=== PATIENT | female | born 1945 | race Caucasian/White ===

== ENCOUNTER 2016-06-17 14:41 | Inpatient (IN) | payer MEDICARE ==
[~2016-06-17] VITALS: Ht 160 cm; Wt 62.0 kg
[2016-06-20] MEDS ORDERED: LORA-373 PO (15:38)
[2016-06-20] MEDS ORDERED: VALT500T PO (15:38)
[2016-06-20] MEDS ORDERED: ESTR1DIS2 T-DERMAL (15:38)
[2016-06-20] MEDS ORDERED: VITA2000 PO (15:38)
[2016-06-20] MEDS ORDERED: DILA100C PO (15:38)
[2016-06-20] MEDS ORDERED: PREV15CA15 PO (15:38)
[2016-06-20] MEDS ORDERED: CALC600T25 PO (15:38)
[2016-06-20] MEDS ORDERED: SIMV10TA PO (15:38)
[2016-07-14] MEDS ORDERED: HYDR-3580 PO (12:47)
[2016-07-26] MEDS ORDERED: VANCOMYCIN 1000 MG/NS 250 ML (for <70 kg) IV SCH ×2 (06:45)
[2016-07-26] MEDS ORDERED: ceFAZolin 2 GM PREMIX 50 ML IV SCH (06:45)
[2016-07-26] MEDS ORDERED: SODIUM CHLORID 0.9% 500 ML IV PRN (06:45)
[2016-07-26] MEDS ORDERED: LACTATED RINGER'S 1000 ML IV PRN (06:45)
[2016-07-26] MEDS ORDERED: CHLORHEXIDINE GLUCONATE 2 % 1 PACK (2 CLOTHS) TOPICAL PRN (06:45)
[2016-07-26] MEDS ORDERED: POVIDONE IODINE 5% (ANTISEPSIS KIT) 4 APPLICATIONS EACH NARE PRN (06:45)
[2016-07-26] MEDS ORDERED: METOPROLOL TARTRATE 25 MG TAB PO PRN (06:45)
[2016-07-26] MEDS: POVIDONE IODINE 7.5% SCRUB 118 ML BOTTLE TOPICAL SCH ×2 (06:45→23:28)
[2016-07-26] MEDS ORDERED: INSULIN HUMAN REGULAR 1,000 UNITS/10 ML VIAL SQ PRN (06:45)
[2016-07-26] MEDS ORDERED: HYDR-3516 PO (07:26)
[2016-07-26 07:28] VITALS: BP 160/82; PULSE 88; RESP 18; TEMP 97.9; O2SAT 98
[2016-07-26] MEDS ORDERED: MIDAZOLAM HCL 2 MG/2 ML VIAL ONE (08:15)
[2016-07-26] MEDS ORDERED: FAMOTIDINE 20 MG/2 ML VIAL ONE (08:15)
[2016-07-26] MEDS ORDERED: ACETAMINOPHEN 1000 MG/100 ML VIAL IV ONE (08:15)
[2016-07-26] MEDS ORDERED: DEXAMETHASONE SOD PHOS 4 MG/ML VIAL ONE (08:15)
[2016-07-26] MEDS ORDERED: GELFOAM SIZE 100 ONE ×2 (08:30→08:43)
[2016-07-26] MEDS ORDERED: SODIUM CHLORIDE 0.9% 20 ML VIAL ONE (08:30)
[2016-07-26] MEDS ORDERED: ceFAZolin INJ 1,000 MG VIAL ONE ×2 (08:30→08:52)
[2016-07-26] MEDS ORDERED: GENTAMICIN SULFATE 80 MG/2 ML VIAL ONE ×2 (08:30→08:43)
--- NOTE | 2016-07-26 10:58 | PD.OP ---
cc: Marek Kiran MD Operative Report Date of Surgery: Jul 26, 2016 Preoperative Diagnosis: Osteophyte disc complex cervical spine, C3 4, C4 5, C5 6. Cervical radiculopathy. Status post anterior cervical fusion C3 4, C4 5, C5 6 Postoperative Diagnosis: Same Procedure: Posterior cervical fusion C3 4, C4 5, C5 6. Posterior spinal segmental instrumentation with facet screw at C35 C45 and C5 6 , bilateral. Left posterior iliac crest bone graft. Placement of facet cages C 34, C4 5, C5 6, bilateral Anesthesia: Gen. Surgeon: Marek Kiran Machine Maintenance Technician(s): LEVY Peterson Operation and Findings: EBL: 50 cc INDICATIONS: This patient is a 70-year-old female whose had a year of conservative care for neck and shoulder and arm pain related to osteophyte disc complex and facet disease at C3 4 C4 5 and C5 6. She's had an anterior cervical fusion across this level and now presents for staged posterior cervical fusion. NOTE: Bonita Peterson PA-C was present for the entire surgical procedure as my miller first. In my medical opinion her skill and care was necessary for proper management of this patient PROCEDURE: The patient was brought the operating room and anesthetized in the supine position. The patient was positioned prone on a Fletcher table. The arms were placed out along the side and taping was utilized to ensure adequate visualization. AP and lateral radiographic images were used identifying the proper level and allowing excellent exposure for purpose of the cervical fusion. A timeout was done and antibiotics were given within a routine time window. A small incision was made over the left iliac crest bone graft. A series of cores of bone graft were harvested with a special percutaneous device. The bone graft was taken to the back table to be mixed with stem cell bone graft for the later part of the case Using AP and lateral radiographs, skin markings were made. On the right side and 18-gauge spinal needle was placed down to the proper level. The left side a separate incision was made and we used the [employer]X system. Exposure was afforded down to the proper level. Under visualization, a chisel was placed down to the C 56 level. This was confirmed under radiographs to be in proper position. Exposure was satisfactory. This is placed down into the facet joint at that level. A decorticating device was utilized decorticating the bone of the facet above and below. A retractor was placed down over the access chisel allowing exposure to the joint and exposure to the articular cartilage. A drilling system was utilized removing cartilage and bone this region followed by a rasp. On the back table demineralized bone matrix was mixed with Nucel stem cells and a autogenous bone graft. A combination of both these were then paced placed into proper cages. The cages were impacted into the proper position and checked again under AP and lateral fluoroscopic images. A transfixation screw was placed into the cage having excellent fixation into the facet joint of the level above. The back side of the cage was filled with additional bone graft which was tamped into position. The retractor was removed. On the right side a separate incision was made. Using the likewise sequence of access to the same level, an incision was made allowing visualization for placement of an access chisel which was placed into the joint followed by decortication with excellent visualization. A final retractor was positioned holding this while we were able to drill and use the rasp. The joint was prepared and we created a space for the cage. The cage was filled with bone graft and impacted in proper position. A transfixation screw was fixated at that time and alignment was satisfactory. Additional bone graft placed along the posterior aspect of the cage and the facet joint and was tamped into position.. At the C4 5 level, this was repeated in the likewise fashion. A decorticating device was utilized decorticating the bone of the facet above and below. A retractor was placed down over the access chisel allowing exposure to the joint and exposure to the articular cartilage. A drilling system was utilized removing cartilage and bone this region followed by a rasp. On the back table demineralized bone matrix was mixed with Nucel stem cells and a autogenous bone graft. A combination of both these were then paced placed into proper cages. The cages were impacted into the proper position and checked again under AP and lateral fluoroscopic images. A transfixation screw was placed into the cage having excellent fixation into the facet joint of the level above. The back side of the cage was filled with additional bone graft which was tamped into position. The retractor was removed. On the right side this was repeated in the likewise fashion. Using the likewise sequence of access to the same level. An access chisel was placed into the joint followed by decortication with excellent visualization. A final retractor was positioned holding this while we were able to drill and use the rasp. The joint was prepared and we created a space for the cage. The cage was filled with bone graft and impacted in proper position. A transfixation screw was fixated at that time and alignment was satisfactory. Additional bone graft placed along the posterior aspect of the cage and the facet joint and was tamped into position. At the [] level, this was repeated in the likewise fashion. A decorticating device was utilized decorticating the bone of the facet above and below. A retractor was placed down over the access chisel allowing exposure to the joint and exposure to the articular cartilage. A drilling system was utilized removing cartilage and bone this region followed by a rasp. On the back table demineralized bone matrix was mixed with Nucel stem cells and a autogenous bone graft. A combination of both these were then paced placed into proper cages. The cages were impacted into the proper position and checked again under AP and lateral fluoroscopic images. A transfixation screw was placed into the cage having excellent fixation into the facet joint of the level above. The back side of the cage was filled with additional bone graft which was tamped into position. The retractor was removed. On the right side this was repeated in the likewise fashion. Using the likewise sequence of access to the same level. An access chisel was placed into the joint followed by decortication with excellent visualization. A final retractor was positioned holding this while we were able to drill and use the rasp. The joint was prepared and we created a space for the cage. The cage was filled with bone graft and impacted in proper position. A transfixation screw was fixated at that time and alignment was satisfactory. Additional bone graft placed along the posterior aspect of the cage and the facet joint and was tamped into position. Intraoperative x-rays in AP and lateral plane showed excellent positioning and stabilization . The wound was irrigated copiously. Hemostasis was controlled. The fascia was closed with interrupted Vicryl suture skin and subcutaneous tissue with 3-0 Vicryl suture followed by Dermabond. The sponge count needle counts and sponge counts were all correct. The patient tolerated the procedure well as taken to the recovery room in satisfactory condition. FINDINGS: There was evidence of severe facet disease at each level. Cage position and stabilization devices were very satisfactory. No complication was appreciated. Marek Kiran MD Jul 26, 2016 10:58
[2016-07-26] MEDS ORDERED: ONDANSETRON HCL 4 MG/2 ML VIAL IV PRN (11:00)
[2016-07-26] MEDS ORDERED: MORPHINE SULFATE 4 MG/ML INJ IV PUSH PRN (11:00)
[2016-07-26] MEDS ORDERED: ACETAMINOPHEN/HYDROcodone 325 MG/7.5 MG TAB PO PRN (11:00)
[2016-07-26] MEDS ORDERED: BISACODYL 10 MG SUPP RECTAL PRN (11:00)
[2016-07-26] MEDS ORDERED: Post-op Orders (for Pharmacy) MISC XX ONE (11:00)
[2016-07-26] MEDS ORDERED: LORazepam 0.5 MG TAB PO PRN (11:00)
[2016-07-26] MEDS ORDERED: HYDR-3580 PO (11:02)
[2016-07-26] MEDS ORDERED: DO NOT ADM ANY ANTICOAGULANT DRUGS PRN (11:06)
[2016-07-26] MEDS ORDERED: PROPOFOL 200 MG/20 ML AMP IV ONE (11:16)
[2016-07-26] MEDS ORDERED: PHENYLEPH/NS 1000 MCG/10 ML SYR IV ONE (11:16)
[2016-07-26] MEDS ORDERED: ONDANSETRON HCL 4 MG/2 ML VIAL IV PUSH ONE (11:16)
[2016-07-26] MEDS ORDERED: ePHEDrine/NS 25 MG/5 ML SYR IV ONE (11:16)
[2016-07-26] MEDS ORDERED: fentaNYL CITRATE 250 MCG/5 ML AMP ONE (11:17)
[2016-07-26] MEDS ORDERED: *morphine SULFATE 8 MG/ML PERIprocedure ONLY ONE ×3 (11:18→11:41)
[2016-07-26] MEDS: LACTATED RINGER'S 1000 ML INJ 1,000 ML IV SCH ×2 (11:31→20:04)
[2016-07-26] MEDS ORDERED: *HYDROmorphone PF 1 MG VIAL PERIprocedural Use ONLY ONE (11:56)
[2016-07-26] MEDS ORDERED: MORPHINE SULFATE 4 MG/ML INJ IV ONE (12:00)
[2016-07-26] MEDS ORDERED: NEOSTIGMINE 3 MG/3 ML SYR IV ONE (12:00)
[2016-07-26] MEDS ORDERED: PHENYTOIN SODIUM 100 MG CAP PO SCH (13:00)
[2016-07-26] MEDS ORDERED: SODIUM CHLORIDE 0.9% FLUSH 10 ML FLUSH IV FLUSH PRN (13:00)
[2016-07-26] MEDS ORDERED: *ONDANSETRON 4 MG VIAL PERIprocedural Use ONLY ONE (14:37)
[2016-07-26] MEDS ORDERED: PROMETHAZINE HCL 25 MG SUPP RECTAL ONE (15:06)
[2016-07-26 16:00] VITALS: BP 145/67; PULSE 106; RESP 18; TEMP 96.4; O2SAT 97
[2016-07-26] MEDS: ACETAMINOPHEN/HYDROcodone 325 MG/7.5 MG TAB PO PRN ×2 (17:31→21:34)
[2016-07-26 17:55] VITALS: O2SAT 97
--- NOTE | 2016-07-26 19:35 | RADRPT ---
EXAM DATE/TIME: 07/26/2016 10:34 [facility] COMPARISON: [facility] ([facility]), July 14, 2016, 13:34. INDICATIONS : Posterior fusion C3 to C6. MEDICAL HISTORY : None. SURGICAL HISTORY : Fusion, cervical. ENCOUNTER: Initial ACUITY: 1 day PAIN SCORE: Non-responsive. LOCATION: Cervical spine. FINDINGS: Two projection examination was performed. There is plate and screw fixation across C3-4-5-6 with fac et hardware also present. Patient intubated. Normal alignment. CONCLUSION: 1. Cervical spine fusion as above. Stefan Hood MD on July 26, 2016 at 19:32 Board Certified Radiologist. This report was verified electronically.
[2016-07-26] MEDS: SODIUM CHLORIDE 0.9% FLUSH 10 ML FLUSH IV FLUSH SCH (20:04)
[2016-07-26 20:30] VITALS: BP 137/62; PULSE 96; RESP 16; TEMP 98.6; O2SAT 99
[2016-07-27 00:30] VITALS: BP 146/68; PULSE 95; RESP 17; TEMP 96; O2SAT 100
[2016-07-27] MEDS: ACETAMINOPHEN/HYDROcodone 325 MG/7.5 MG TAB PO PRN ×2 (02:06→06:10)
[2016-07-27 04:20] VITALS: BP 156/71; PULSE 83; RESP 16; TEMP 96.6; O2SAT 100
--- NOTE | 2016-07-27 07:37 | PD.ORT.PN ---
Subjective Subjective Remarks Shoulders very sore. Lots of cramping and spasms. Left arm pain 'gone'. No other complaints. Throat not as sore as last surgery. No CP or SOB. Ok to discharge home today. Objective Vitals Vital Signs Date Time Temp Pulse Resp B/P Pulse Ox O2 Delivery O2 Flow Rate FiO2 07/27/16 04:20 96.6 83 16 156/71 100 07/27/16 00:30 96.0 95 17 146/68 100 07/26/16 20:30 98.6 96 16 137/62 99 07/26/16 20:03 99 Nasal Cannula 2.00 07/26/16 17:55 97 Nasal Cannula 2.00 07/26/16 16:00 96.4 106 18 145/67 97 07/26/16 15:00 97.7 95 12 152/72 98 Nasal Cannula 2 07/26/16 14:00 96 12 143/72 98 Nasal Cannula 2 07/26/16 13:00 93 12 148/74 97 Nasal Cannula 2 07/26/16 12:15 91 12 153/72 96 Nasal Cannula 3 07/26/16 12:00 83 12 145/70 96 Nasal Cannula 3 07/26/16 11:45 77 12 148/75 96 Nasal Cannula 3 07/26/16 11:30 95 12 164/77 96 Nasal Cannula 3 07/26/16 11:15 78 12 165/82 97 Nasal Cannula 3 07/26/16 11:07 97.9 91 12 165/96 94 Nasal Cannula 3 I/O 07/26/16 07/26/16 07/26/16 07/27/16 07/27/16 07/27/16 07:00 15:00 23:00 07:00 15:00 23:00 Intake Total 1000 ml 1147 ml 240 ml Output Total 50 ml Balance 950 ml 1147 ml 240 ml Intake Oral 720 ml 240 ml IV Total 427 ml Other 1000 ml Output Estimated Blood Loss 50 ml # Voids 2 2 # Bowel Movements 0 0 Objective Remarks Laying in bed Cervical collar in place No acute distress With son C/S Dressing c/d/i, Spasms bilateral traps, no erythema +motor biceps, brachiorad, +sens, +nvi Assessment & Plan Ortho Post Op Day #: 1 Problem List: Assessment and Plan pod#1 s/p Posterior c/s fusion C3-C6 Flexeril 10mg to help with spasms [place] for pain. Dry dressing changes daily beginning tomorrow. 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 Ok to d/c home later today. F/U in 2 weeks as scheduled. Bianka Desai Jul 27, 2016 07:37
--- NOTE | 2016-07-27 07:37 | HHI.DCPOC ---
Discharge Care Plan Diagnosis: (1) Cervical spinal stenosis (2) Cervical spine instability Your Health Problems Are: Incision/Drains Inflammation Swelling Goals to Promote Your Health * To prevent worsening of your condition and complications * To maintain your health at the optimal level Directions to Meet Your Goals Take your medications as prescribed Follow your dietary instruction Follow activity as directed Keep your appointments as scheduled Take your immunizations and boosters as scheduled If your symptoms worsen call your PCP, if no PCP go to Urgent Care Center or Emergency Room Smoking is Dangerous to Your Health. Avoid second hand smoke Call the 24-hour hour crisis hotline for domestic abuse at Bianka Desai Jul 27, 2016 07:37
--- NOTE | 2016-07-27 07:38 | HHI.DS ---
Discharge Summary Admission Date Jul 26, 2016 at 06:18 Discharge Date: Jul 27, 2016 Admitting Diagnosis see below Diagnosis: (1) Cervical spinal stenosis Diagnosis: Principal (2) Cervical spine instability Diagnosis: Principal Procedures Posterior cervical fusion C3-C6 with DTRAX facet instrumentation, bone graft. Brief History This is a 70 year old female patient with a one year history of neck and arm pain. She began having increased headaches and radiating arm symptoms so she sought out medical evaluation. Imaging studies were performed showing significant stenosis at C56 and moderate at C34 and C45. Conservative measures were pursued including use of medications and epidural steroid injections. She continued to decline. Surgical treatment was eventually recommended and she agreed to move forward. She underwent anterior cervical fusion and now presents for staged posterior cervical fusion C3-6. PE at Discharge Laying in bed Cervical collar in place No acute distress With son C/S Dressing c/d/i, Spasms bilateral traps, no erythema +motor biceps, brachiorad, +sens, +nvi Hospital Course Surgical treatment was performed on the day of admission without complication. She recovered well in PACU and was transferred to the orthopaedic floor. Pain was controlled with IV and oral medications. She was compliant with therapy and all cervical spine precautions including use of her cervical collar. After 1 day she was found to be stable and discharged home with instruction to continue her collar for an addition 4-6 weeks, to pursue a soft high fiber diet for 72 hours and to avoid significant lifting overhead. 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 Estrogen Supplements #8 Ref 0 PATCH Hydrocodone-Acetaminophen (Hydrocodone-Acetaminophen) 7.5-325 mg Tab 1 TAB PO Q4H PRN PAIN SCALE 1 TO 5 #50 TAB Hydrocodone-Acetaminophen (Hydrocodone-Acetaminophen) 5-325 mg Tab 1 TAB PO Q4H PRN PAIN Ref 0 TAB Lansoprazole (Prevacid) 15 Mg Capdr 15 MG PO DAILY Ref 0 CAP Lorazepam (Lorazepam) 0.5 Mg Tab 0.5 MG PO HS PT TAKES 3 TIMES A WEEK HS PRN ANXIETY AND/OR INSOMNIA Ref 0 TAB Phenytoin Extended (Dilantin) 100 Mg Cap 400 MG PO DIRECTED PT TAKES Mon AT NIGHT Control Seizures #90 Ref 0 CAP Phenytoin Extended (Dilantin) 100 Mg Cap 300 MG PO DIRECTED PT TAKES Mon SAT AT NIGHT Control Seizures #270 Ref 0 CAP Simvastatin (Simvastatin) 10 Mg Tab 10 MG PO DIRECTED PT TAKES HS 3 TIMES A WEEK Cholesterol Management #30 Ref 0 TAB Valacyclovir (Valtrex) 500 Mg Tab 500 MG PO DAILY PRN Management Viral Infection #30 Ref 0 TAB Bianka Desai Jul 27, 2016 07:38
[2016-07-27] MEDS ORDERED: CYCL1TAB29 PO (07:39)
[2016-07-27 08:00] VITALS: BP 124/60; PULSE 95; RESP 18; TEMP 98.1; O2SAT 96
[2016-07-27] MEDS ORDERED: PANTOPRAZOLE SOD 20 MG DELAYED RELEASE TAB PO SCH (09:00)
[2016-07-27] MEDS ORDERED: DOCUSATE SODIUM 100 MG CAP PO SCH (09:00)
[2016-07-27] MEDS ORDERED: CYCLOBENZAPRINE HCL 10 MG TAB PO SCH (09:00)
[2016-07-27] MEDS ORDERED: PHENYTOIN SODIUM 100 MG CAP PO SCH (09:00)
[2016-07-27] MEDS: SODIUM CHLORIDE 0.9% FLUSH 10 ML FLUSH IV FLUSH SCH (10:06)
[2016-07-27 11:57] VITALS: O2SAT 96
[2016-07-27] MEDS ORDERED: MULTIVITAMINS/MINERALS THERAPEUTIC TAB PO SCH (12:00)
[2016-07-27] MEDS ORDERED: PRAVASTATIN SOD 20 MG TAB PO SCH (21:00)
== END 2016-07-27 12:01 | disposition home or self-care (01) | DRG 473 ==
LOC: HSDI 07-26 06:18 → N06A 07-26 16:05
PROVIDERS: ADMIT Orthopaedic Surgery Orthopaedic Surgery of the Spine; ATTEND Orthopaedic Surgery Orthopaedic Surgery of the Spine
PROC: 0RG20A1 (ICD-10-PCS; 2016-07-26)
PROC: 0QB30ZZ Excision of Left Pelvic Bone, Open Approach (ICD-10-PCS; 2016-07-26)
PROC: 0RG2071 Fusion of 2 or more Cervical Vertebral Joints with Autologous Tissue Substitute, Posterior Approach, Posterior Column, Open Approach (ICD-10-PCS; principal; 2016-07-26 08:45)
DX: M48.02 Spinal stenosis, cervical region (principal); M53.2X2 Spinal instabilities, cervical region; M25.78 Osteophyte, vertebrae; M54.12 Radiculopathy, cervical region; Z98.1 Arthrodesis status
CPT/HCPCS: 72040; 76000; 94150; C1713; J0131; J0690; J1100; J1170; J1580; J2250; J2270; J2370; J2405; J2710; J3010; J3370; J7050; J7120

== ENCOUNTER → 2016-06-20 | Outpatient (CLI) | payer MEDICARE ==
[~2016-06-20] MED LIST: CALC600T25 PO; CYCL1TAB29 PO; DILA100C PO; ESTR1DIS2 T-DERMAL; HYDR-3516 PO; HYDR-3580 PO; LORA-373 PO; LORA0.5T PO; MOBI7.5T PO; NORC7.5T PO; OYST500T77 PO; PHEN100 PO; PREV15CA15 PO; SIMV10 PO; SIMV10TA PO; SUMA50TA2 PO; TAB-TAB PO; VALT500T PO; VITA2000 PO; VITA20002 PO; ZOCO40TA PO; [UNRECOGNIZED DRUG - CODE] PO
[2016-06-20 12:49] LABS: AUTOMATED NEUTROPHIL # 1.3 TH/MM3 (1.8-7.7); BASOPHIL % 0.3 % (0.0-2.0); EOSINOPHIL % 0.4 % (0.0-4.0); HEMATOCRIT 43.8 % (35.0-46.0); HEMO FLAGS DIFF FINAL; LYMPHOCYTE # 0.9 TH/MM3 (1.0-4.8); MEAN CELL VOLUME 101.7 FL (80.0-100.0); MEAN CORPUSCULAR HEMOGLOBIN 34.6 PG (27.0-34.0); MEAN CORPUSCULAR HGB CONC 34.1 % (32.0-36.0); NEUT % 48.3 % (16.0-70.0); PLATELET COUNT 197 TH/MM3 (150-450); RED BLOOD COUNT 4.31 MIL/MM3 (4.00-5.30); RED CELL DISTRIBUTION WIDTH 14.1 % (11.6-17.2); WHITE BLOOD COUNT 2.8 TH/MM3 (4.0-11.0)
[2016-06-20 13:09] LABS: BLOOD, URINE NEG (NEG); COMMENT (UR) CULT NOT INDICATED; CULTURE IF INDICATED CULT NOT INDICATED; GLUCOSE,URINE NEG (NEG); KETONE, URINE NEG (NEG); MUCUS URINE FEW /lpf (OCC); NITRITE,URINE NEG (NEG); SQUAMOUS EPITHELIAL CELL URINE 1 /hpf (0-5); URINE COLOR YELLOW (YELLW/STRAW)
--- NOTE | 2016-06-21 14:52 | EKG ---
Date Performed: 06/20/2016 Time Performed: 12:35:44 PTAGE: 70 years EKG: Sinus rhythm POSSIBLE LEFT ATRIAL ENLARGEMENT Compared to prior tracing no significant change BORDERLINE ECG PREVIOUS TRACING 06/25/2015 @11.38.13 DOCTOR: Christopher Fregoso Interpretating Date/Time 06/21/2016 14:49:32
== END ==
LOC: CPRE 11:54
PROVIDERS: ATTEND Orthopaedic Surgery Orthopaedic Surgery of the Spine
DX: M50.320 Other cervical disc degeneration, mid-cervical region, unspecified level (principal); M50.33 Other cervical disc degeneration, cervicothoracic region; R94.31 Abnormal electrocardiogram [ECG] [EKG]
CPT/HCPCS: 36415; 81001; 85025; 93005

== ENCOUNTER 2016-07-12 15:12 | Inpatient (IN) | payer MEDICARE ==
[~2016-07-12] VITALS: Ht 161.3 cm; Wt 64.0 kg
[~2016-07-12 15:12] MED LIST changes: -CYCL1TAB29 PO; -HYDR-3516 PO; -HYDR-3580 PO; -LORA0.5T PO; -MOBI7.5T PO; -NORC7.5T PO; -OYST500T77 PO; -PHEN100 PO; -SIMV10 PO; -SUMA50TA2 PO; -TAB-TAB PO; -VITA20002 PO; -ZOCO40TA PO; -[UNRECOGNIZED DRUG - CODE] PO
--- NOTE | 2016-07-13 22:15 | MH ---
cc: SRIDHAR BRUCE M.D. DATE OF ADMISSION: 07/14/2016 ADMITTING DIAGNOSIS: Osteophyte disc complex, cervical spine. HISTORY OF PRESENT ILLNESS: This patient is a 70 year-old female with significant neck and arm pain. Investigative study shows evidence of a moderate stenosis, C3-C4, C4-C5 and C5-C6 associated with osteophyte disc complex. The patient has a cervical radiculopathy. Despite conservative care the patient is painful and symptomatic. She presents for surgical treatment. PAST MEDICAL HISTORY: See attached notes. SOCIAL HISTORY, FAMILY HISTORY, AND REVIEW OF SYSTEMS: See attached notes. PHYSICAL EXAMINATION: GENERAL: The patient is an average build female appearing at or younger than stated age. HEENT: Normocephalic, atraumatic. Pupils equal, round, reactive to light and accommodation. Extraocular motions intact. NECK: Supple. CHEST: Clear. HEART: Regular rate and rhythm. ABDOMEN: Soft, nontender, normoactive bowel sounds. MUSCULOSKELETAL EXAMINATION: Cervical spine, restricted range of motion, positive Spurling's maneuver bilaterally. Motor examination, see attached records. IMPRESSION: 1. Cervical spinal stenosis. 2. Osteophyte disk complex cervical spine C3-4, C4-5, C5-6 3. Bilateral cervical radiculopathy PLAN: Anterior cervical diskectomy, decompression with bilateral foraminotomy, C3-C4, C4-C5 and C5-C6. Interbody cages, anterior plate, iliac crest bone graft. CONSENT: There are risks with surgery including infection, bleeding, loss of motion, continued pain, need for further surgery, neurologic or vascular injury, etc. The patient understands these issues and wishes to press on with surgery as outlined above. Surgery will be performed under the guidance of Dr. Dwayne Bruce and the undersigned. This patient will present approximately two weeks from now for a staged posterior cervical fusion at the same levels. Sridhar Bruce MD [facility] /9:33 PM /9:42 PM
[2016-07-14] MEDS ORDERED: SODIUM CHLOR 0.9% 250 ML INJ 250 ML ONE (07:49)
[2016-07-14] MEDS ORDERED: VANCOMYCIN HCL 1000 MG VIAL ONE (07:49)
[2016-07-14] MEDS ORDERED: BUPIVACAINE/EPINEPHRINE 0.25% 50 ML VIAL ONE (07:51)
[2016-07-14] MEDS ORDERED: GENTAMICIN SULFATE 80 MG/2 ML VIAL ONE (07:51)
[2016-07-14 08:06] VITALS: BP 149/74; PULSE 70; RESP 20; TEMP 98.1; O2SAT 99
[2016-07-14] MEDS ORDERED: CHLORHEXIDINE GLUCONATE 2 % 1 PACK (2 CLOTHS) TOPICAL PRN (08:45)
[2016-07-14] MEDS ORDERED: INSULIN HUMAN REGULAR 1,000 UNITS/10 ML VIAL SQ PRN (08:45)
[2016-07-14] MEDS ORDERED: VANCOMYCIN 1000 MG/NS 250 ML (for <70 kg) IV SCH ×2 (08:45)
[2016-07-14] MEDS ORDERED: POVIDONE IODINE 7.5% SCRUB 118 ML BOTTLE TOPICAL SCH (08:45)
[2016-07-14] MEDS ORDERED: POVIDONE IODINE 5% (ANTISEPSIS KIT) 4 APPLICATIONS EACH NARE PRN (08:45)
[2016-07-14] MEDS ORDERED: METOPROLOL TARTRATE 25 MG TAB PO PRN (08:45)
[2016-07-14] MEDS ORDERED: LACTATED RINGER'S 1000 ML IV PRN (08:45)
[2016-07-14] MEDS ORDERED: ceFAZolin 2 GM PREMIX 50 ML IV SCH (08:45)
[2016-07-14] MEDS ORDERED: SODIUM CHLORID 0.9% 500 ML IV PRN (08:45)
[2016-07-14] MEDS ORDERED: MIDAZOLAM HCL 5 MG/5 ML VIAL ONE (09:24)
[2016-07-14] MEDS ORDERED: FAMOTIDINE 20 MG/2 ML VIAL ONE (09:25)
[2016-07-14] MEDS ORDERED: DEXAMETHASONE SOD PHOS 4 MG/ML VIAL ONE (09:25)
[2016-07-14] MEDS ORDERED: APREPITANT 40 MG CAP ONE (09:25)
[2016-07-14] MEDS ORDERED: fentaNYL CITRATE 250 MCG/5 ML AMP ONE (09:35)
[2016-07-14] MEDS ORDERED: KETAMINE HCL 500 MG/5 ML VIAL ONE (09:35)
[2016-07-14] MEDS ORDERED: LACTATED RINGER'S 1000 ML INJ 2,000 ML IV ONE (12:00)
[2016-07-14] MEDS ORDERED: ONDANSETRON HCL 4 MG/2 ML VIAL IV PUSH ONE (12:00)
[2016-07-14] MEDS ORDERED: PROPOFOL 200 MG/20 ML AMP IV ONE (12:00)
[2016-07-14] MEDS ORDERED: PHENYLEPH/NS 1000 MCG/10 ML SYR IV ONE (12:00)
--- NOTE | 2016-07-14 12:41 | PD.OP ---
cc: Marek Kiran. Operative Report Date of Surgery: Jul 14, 2016 Preoperative Diagnosis: Osteophyte disc complex C3 4, C4 5, C5 6. Cervical radiculopathy. Cervical instability, C3 4 Postoperative Diagnosis: Same Procedure: Anterocervical discectomy decompression and bilateral foraminotomies, C3 4. Anterocervical discectomy decompression and bilateral foraminotomies, C4 5. Anterocervical discectomy decompression and bilateral foraminotomies, C5 6. Left anterior iliac crest bone graft Anesthesia: Gen. Surgeon: Marek Kiran Needle Polisher(s): LEVY Peterson Operation and Findings: EBL: 100 cc INDICATIONS: Patient is a 70-year-old female treated by the undersigned for greater than 6 months with significant neck pain radiating shoulder and arm pain with weakness. The skin studies shows evidence of osteophyte disc complexes at the above levels including C3 4, C4 5 and C5 6. Despite conservative care, the patient continued to be painful and symptomatically. She presents for surgical treatment. NOTE: Bonita Peterson PA-C was present for the entire surgical procedure as my registered nurse first assistant. In my medical opinion her skill and care was necessary for proper management of this patient PROCEDURE: The patient was brought to the operating room and anesthetized in the supine position. This patient was positioned supine on the radiolucent table. All pressure points were protected in the anterior cervical spine and iliac crest was scrubbed with alcohol followed by Hibiclens followed by ChloraPrep. A timeout was done and antibiotics were given within 1 hour time window. Lateral radiographic images were used identifying the proper level. A right anterior incision was made in line with skin creases. The platysma was opened in line with the incision. Deep dissection continued in the interval between the carotid sheath and the esophagus. The longus-coli muscles were lifted on both sides and retractors were positioned allowing good exposure. Lateral radiographic images were used to identify the proper level. [place] style interosseous pins were placed at C3 and C4 allowing exposure to that level. The microscope was rolled into the field. A total discectomy was accomplished and posterior osteophytes were removed. The posterior longitudinal ligament and annulus was taken down. Bilateral foraminotomies were accomplished. The endplates were squared up anticipating later bone grafting. A blunt probe could be placed out each foramen without evidence of nerve root compromise. The C3 pin was placed down to C5. An anterior exposure was accomplished. We performed a total discectomy with excision of the posterior annulus and posterior longitudinal ligament. Bilateral foraminotomies were accomplished. Osteophytes were removed. The endplates were squared up anticipating later bone grafting. A blunt probe could be placed out each foramen without evidence of nerve root compromise. The C4 pin was placed down to C6. An anterior exposure was accomplished. We performed a total discectomy with excision of the posterior annulus and posterior longitudinal ligament. Bilateral foraminotomies were accomplished. Osteophytes were removed. The endplates were squared up anticipating later bone grafting. A blunt probe could be placed out each foramen without evidence of nerve root compromise. The left iliac crest was approached. A small stab incision was made allowing percutaneous access to the anterior iliac crest. Multiple cores of cancellous bone were harvested and taken to the back table to be used for later bone grafting. The wound was irrigated anesthetized and closed with 4-0 Vicryl followed by Dermabond. The case was turned over to Dr. Dwayne Kiran for fusion and instrumentation per his dictation. FINDINGS: Was evidence of significant central stenosis at all 3 levels. Foraminal stenosis was greatest to the left at the C3-C4 level. Bilateral foraminal stenosis was seen at the other levels. No complication was appreciated. Overall bone quality was considered to be average to below average. No complication was appreciated. NOTE: This surgery was performed in 2 parts. The first part was the neurosurgical decompression performed under the variable power stereo microscope by the undersigned in addition to the bone graft. The second portion of the surgery will be performed by the orthopedic spine component by co -surgeon, Dr. Dwayne Kiran for the anterior fusion with interbody cage and anterior plate. The skill of 2 surgeons was necessary to perform distinct separate procedural services as dictated above and dictated in the following operative note by Dr. Dwayne Kiran. Marek Kiran MD Jul 14, 2016 12:41
[2016-07-14] MEDS ORDERED: MORPHINE SULFATE 4 MG/ML INJ IV PUSH PRN (12:45)
[2016-07-14] MEDS ORDERED: LORazepam 0.5 MG TAB PO PRN (12:45)
[2016-07-14] MEDS ORDERED: BISACODYL 10 MG SUPP RECTAL PRN (12:45)
[2016-07-14] MEDS ORDERED: SODIUM CHLORIDE 0.9% FLUSH 5 ML FLUSH IVF PRN (12:45)
[2016-07-14] MEDS ORDERED: Post-op Orders (for Pharmacy) MISC XX ONE (12:45)
[2016-07-14] MEDS ORDERED: ACETAMINOPHEN/HYDROcodone 325 MG/7.5 MG TAB PO PRN (12:45)
[2016-07-14] MEDS ORDERED: HYDR-3580 PO (12:47)
[2016-07-14] MEDS: LACTATED RINGER'S 1000 ML INJ 1,000 ML IV SCH (14:00)
[2016-07-14] MEDS ORDERED: MORPHINE SULFATE 4 MG/ML INJ ONE (14:10)
[2016-07-14] MEDS ORDERED: *morphine SULFATE 8 MG/ML PERIprocedure ONLY ONE (14:13)
[2016-07-14] MEDS ORDERED: DO NOT ADM ANY ANTICOAGULANT DRUGS PRN (14:30)
[2016-07-14 15:15] VITALS: BP 123/57; PULSE 86; RESP 18; TEMP 95.9; O2SAT 100
--- NOTE | 2016-07-14 16:36 | RADRPT ---
EXAM DATE/TIME: 07/14/2016 13:34 [facility] COMPARISON: No previous studies available for comparison. INDICATIONS : C3 C4, C4 C5, C5 C6 FUSION. MEDICAL HISTORY : None. SURGICAL HISTORY : None. ENCOUNTER: Initial ACUITY: 1 day PAIN SCORE: Non-responsive. LOCATION: Bilateral C3-C6. FINDINGS: 2 images recorded digitally in the operating room using C-arm after placement of anterior cervical pl ate at C2-5. CONCLUSION: Intraoperative images. Manan Varner MD on July 14, 2016 at 16:34 Board Certified Radiologist. This report was verified electronically.
[2016-07-14] MEDS: ONDANSETRON HCL 4 MG/2 ML VIAL IV PRN ×2 (16:48→21:27)
[2016-07-14] MEDS: ACETAMINOPHEN/HYDROcodone 325 MG/7.5 MG TAB PO PRN (16:48)
[2016-07-14 20:15] VITALS: BP 138/69; PULSE 85; RESP 19; TEMP 96; O2SAT 100
[2016-07-14] MEDS: SODIUM CHLORIDE 0.9% FLUSH 5 ML FLUSH IVF SCH (20:39)
[2016-07-14] MEDS ORDERED: PHENYTOIN SODIUM 100 MG CAP PO SCH (21:00)
[2016-07-15 00:15] VITALS: BP 122/68; PULSE 93; RESP 17; TEMP 96; O2SAT 99
[2016-07-15 01:57] VITALS: O2SAT 98
[2016-07-15] MEDS: LACTATED RINGER'S 1000 ML INJ 1,000 ML IV SCH (02:30)
[2016-07-15] MEDS: ONDANSETRON HCL 4 MG/2 ML VIAL IV PUSH PRN ×3 (02:30→12:13)
[2016-07-15] MEDS: ACETAMINOPHEN/HYDROcodone 325 MG/7.5 MG TAB PO PRN ×3 (02:30→12:13)
[2016-07-15 04:16] VITALS: BP 116/52; PULSE 86; RESP 18; TEMP 97.2; O2SAT 99
--- NOTE | 2016-07-15 07:45 | PD.ORT.PN ---
Subjective Subjective Remarks Doing well. no radiating pain. Tolerating fluids well Objective Vitals Vital Signs Date Time Temp Pulse Resp B/P Pulse Ox O2 Delivery O2 Flow Rate FiO2 07/15/16 04:16 97.2 86 18 116/52 99 07/15/16 01:57 98 Nasal Cannula 2.00 07/15/16 00:15 96.0 93 17 122/68 99 07/14/16 20:15 96.0 85 19 138/69 100 07/14/16 15:15 95.9 86 18 123/57 100 07/14/16 14:30 73 16 123/65 99 Nasal Cannula 2 07/14/16 14:15 71 16 141/74 99 Nasal Cannula 2 07/14/16 14:03 97.3 95 16 137/73 99 Nasal Cannula 2 07/14/16 08:06 98.1 70 20 149/74 99 I/O 07/14/16 07/14/16 07/14/16 07/15/16 07/15/16 07/15/16 07:00 15:00 23:00 07:00 15:00 23:00 Intake Total 1400 ml 240 ml 240 ml Output Total 550 ml 425 ml 300 ml Balance 850 ml -185 ml -60 ml Intake Oral 0 ml 240 ml 240 ml IV Total 100 ml Other 1300 ml Output Urine Total 0 ml 425 ml 300 ml Estimated Blood Loss 150 ml Other 400 ml # Voids 1 # Bowel Movements 0 0 Objective Remarks Dressing dry. Brace fits fine. No significant pain. Motor examination is normal Assessment & Plan Ortho Post Op Day #: 1 Problem List: Assessment and Plan ACDF C3 4, C4 5, C5 6. PLAN: Discharge to home Return in 2 weeks for posterior cervical fusion Dressing changes instructed Full-time brace wear regular diet [place] for pain Marek Kiran MD Jul 15, 2016 07:45
[2016-07-15 08:00] VITALS: BP 106/54; PULSE 87; RESP 17; TEMP 97.9; O2SAT 96
[2016-07-15] MEDS: SODIUM CHLORIDE 0.9% FLUSH 5 ML FLUSH IVF SCH (08:04)
[2016-07-15] MEDS ORDERED: PANTOPRAZOLE SOD 20 MG DELAYED RELEASE TAB PO SCH (09:00)
[2016-07-15] MEDS ORDERED: DOCUSATE SODIUM 100 MG CAP PO SCH (09:00)
[2016-07-15] MEDS ORDERED: MULTIVITAMINS/MINERALS THERAPEUTIC TAB PO SCH (09:00)
[2016-07-15 09:47] VITALS: O2SAT 96
[2016-07-15 12:00] VITALS: BP 120/59; PULSE 82; RESP 18; TEMP 97.4; O2SAT 99
[2016-07-15] MEDS ORDERED: PHENYTOIN SODIUM 100 MG CAP PO SCH (21:00)
[2016-07-15] MEDS ORDERED: PRAVASTATIN SOD 20 MG TAB PO SCH (21:00)
--- NOTE | 2016-07-17 19:41 | MP ---
cc: DWAYNE BRUCE G. FREDERICK, M.D. DATE OF SURGERY July 14, 2016 PREOPERATIVE DIAGNOSES 1. C3-4 osteophyte disk complex, spinal stenosis. 2. C4-5 osteophyte disk complex, spinal stenosis, spinal cord compression. 3. C5-6 osteophyte disk complex, spinal stenosis. 4. 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 5. Bilateral cervical radiculitis with bilateral upper extremity weakness. POSTOPERATIVE DIAGNOSES 1. C3-4 osteophyte disk complex, spinal stenosis. 2. C4-5 osteophyte disk complex, spinal stenosis, spinal cord compression. 3. C5-6 osteophyte disk complex, spinal stenosis. 4. 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 5. Bilateral cervical radiculitis with bilateral upper extremity weakness. PROCEDURE C3-4, C4-5, C5-6 interbody fusion; C3-4, C4-5, C5-6 spinal ACC anterior cervical cages; C3-C6 anterior spinal instrumentation. SURGEON Dwayne Bruce MD DIPLOMATIC INTERPRETER SHERLY Mcleod ESTIMATED BLOOD LOSS 150 cc. SPECIMEN None. COMPLICATIONS None. ANESTHESIA General. DRAINS None. CONDITION Stable. PLAN OF ACTIVITY As per orders. PROCEDURE Dr. Marek Bruce and myself were co-surgeons in the surgical procedure. Dr. Marek Bruce performed the neuro decompressive portion of the procedure which was the C3-C4, C4-C5, C5-C6 anterior cervical diskectomy, anterior decompression using operative microscope and left anterior iliac crest bone grafting. I was not present for his portion of the procedure. I then performed the orthopedic spinal stabilization and fusion portion of the procedure which is well described in this operative note. My special education assistant SHERLY Mcleod was present for entire surgical case. She was medically necessary for the entire case because of the complexity of the case and to facilitate the performance of procedure. The TOURIST ESCORT at back table did not have the skill set for this case to manipulate the instruments e.g. the multiple different soft tissue tractors, trial implants and permanent implants. The endplates at C5-6 were prepared for fusion. The hyaline cartilage endplates were removed using angled curettes and burs. A 510 x 12 ACC cage placed in the interspace. Anterior iliac crest bone grafting was used under fluoroscopic guidance for anterior interbody fusion. The endplates at C4-5 were prepared for fusion. Hyaline cartilage endplate was used with angled curettes and burs. The 5 by10 x 12 ACC cage placed in the interspace. Under fluoroscopic guidance anterior iliac crest bone grafting was performed. The endplates at C3-4 were prepared for fusion. Hyaline cartilage endplate were used with angled curettes and burs. A 610 x 12 ACC cage placed in the interspace. Anterior iliac crest bone graft was used under fluoroscopic guidance for interbody fusion. Anterior osteophytes were removed using multiple types of rongeurs and burs. 57 mm (5:23) plate was used for anterior spinal instrumentation. Two screws were used in the vertebral body at C3, C4, C5 and C6. These screws were 14 mm in length, 4.0 mm in diameter fixed angle screws. Each screw was drilled and each of the screw heads were locked to the plate. Intraoperative fluoroscopy AP and lateral plane confirmed satisfactory position of bone graft at C3-4, C4-5, C5-6, satisfactory position of ACC cages at the C3-4, C4-5, C5-6 and satisfactory spinal instrumentation from C3-C6. The wound was irrigated with copious amounts of sterile saline antibiotic solution. The wound itself was dry. The wound was closed in routine manner with multiple 3-0 Vicryl suture. The skin approximated with running subcuticular 4-0 Vicryl suture. Dermabond skin glue was placed over the incisions. Sterile dressings were applied. The patient placed in [place] cervical orthosis. The patient tolerated the procedure well and arrived in recovery room in stable and satisfactory condition. MD NANCY Kirk/[facility] /2:04 PM /7:06 PM ARIEL
== END 2016-07-15 13:01 | disposition home or self-care (01) | DRG 473 ==
LOC: HSDI 07-14 07:19 → N06A 07-14 14:47
PROVIDERS: ADMIT Orthopaedic Surgery Orthopaedic Surgery of the Spine; ATTEND Orthopaedic Surgery Orthopaedic Surgery of the Spine
PROC: 0RG2070 Fusion of 2 or more Cervical Vertebral Joints with Autologous Tissue Substitute, Anterior Approach, Anterior Column, Open Approach (ICD-10-PCS; 2016-07-14)
PROC: 0RT30ZZ Resection of Cervical Vertebral Disc, Open Approach (ICD-10-PCS; 2016-07-14)
PROC: 0QB30ZZ Excision of Left Pelvic Bone, Open Approach (ICD-10-PCS; 2016-07-14)
PROC: 0RG20A0 Fusion of 2 or more Cervical Vertebral Joints with Interbody Fusion Device, Anterior Approach, Anterior Column, Open Approach (ICD-10-PCS; principal; 2016-07-14 09:39)
DX: M47.22 Other spondylosis with radiculopathy, cervical region (principal); M48.02 Spinal stenosis, cervical region; M25.78 Osteophyte, vertebrae; E78.5 Hyperlipidemia, unspecified; K21.9 Gastro-esophageal reflux disease without esophagitis
CPT/HCPCS: 72040; 76000; 94150; C1713; J0690; J1100; J1580; J2250; J2270; J2370; J2405; J3010; J3370; J7050; J7120; J8501

== ENCOUNTER → 2017-02-02 | Outpatient (CLI) | payer MEDICARE ==
[~2017-02-02] MED LIST changes: -CALC600T25 PO; +CALC600T5 PO; +CYCL10TA PO; +HYDR-3516 PO; +HYDR-3580 PO; -LORA-373 PO; +LORA0.5T PO; -PREV15CA15 PO; +PREV15CA20 PO
[2017-02-02 11:00] LABS: BACTERIA, URINE RARE /hpf; BLOOD, URINE NEG (NEG); COMMENT (UR) CULT NOT INDICATED; CULTURE IF INDICATED CULT NOT INDICATED; GLUCOSE,URINE NEG (NEG); KETONE, URINE NEG (NEG); MUCUS URINE FEW /lpf (OCC); NITRITE,URINE NEG (NEG); PH, URINE 7.5 (5.0-8.5); SQUAMOUS EPITHELIAL CELL URINE 3 /hpf (0-5); URINE COLOR YELLOW (YELLW/STRAW)
[2017-02-02 11:05] LABS: AUTOMATED NEUTROPHIL # 1.8 TH/MM3 (1.8-7.7); BASOPHIL % 0.5 % (0.0-2.0); EOSINOPHIL % 0.8 % (0.0-4.0); HEMATOCRIT 45.2 % (35.0-46.0); HEMO FLAGS DIFF FINAL; LYMPH % 39.1 % (9.0-44.0); LYMPHOCYTE # 1.5 TH/MM3 (1.0-4.8); MEAN CELL VOLUME 102.8 FL (80.0-100.0); MEAN CORPUSCULAR HEMOGLOBIN 35.1 PG (27.0-34.0); MEAN CORPUSCULAR HGB CONC 34.2 % (32.0-36.0); MONO % 12.8 % (0.0-8.0); NEUT % 46.8 % (16.0-70.0); PLATELET COUNT 247 TH/MM3 (150-450); RED CELL DISTRIBUTION WIDTH 13.4 % (11.6-17.2); WHITE BLOOD COUNT 3.8 TH/MM3 (4.0-11.0)
[2017-02-02 11:15] LABS: ANION GAP 5 MEQ/L (5-15); AST (GOT) 19 U/L (15-37); BICARBONATE 30.5 MEQ/L (21.0-32.0); BLOOD UREA NITROGEN 16 MG/DL (7-18); CHLORIDE 104 MEQ/L (98-107); GLOMERULAR FILTRATION RATE 60 ML/MIN (>89); POTASSIUM 4.7 MEQ/L (3.5-5.1); SODIUM (NA) 139 MEQ/L (136-145)
[2017-02-02 11:16] LABS: GLUCOSE,FASTING 84 MG/DL (74-99)
[2017-02-02 11:29] LABS: ALKALINE PHOSPHATASE 88 U/L (45-117); ALT (GPT) 22 U/L (10-53); HDL CHOLESTEROL 119.2 MG/DL (40.0-60.0); LDL CHOLESTEROL 80 MG/DL (0-99); TOTAL BILIRUBIN ADULT 0.4 MG/DL (0.2-1.0)
== END ==
LOC: PLAB 07:10
PROVIDERS: ATTEND Internal Medicine
DX: E56.9 Vitamin deficiency, unspecified (principal); E78.2 Mixed hyperlipidemia; G40.802 Other epilepsy, not intractable, without status epilepticus; Z79.899 Other long term (current) drug therapy
CPT/HCPCS: 36415; 80053; 80061; 80185; 81001; 82306; 84443; 85025